=== PATIENT | male | born 2000 | race Caucasian/White ===

== ENCOUNTER 2023-08-16 00:31 | Emergency (ER) | payer SELFPAY ==
[~2023-08-16] VITALS: Ht 175.3 cm; Wt 65.0 kg
[2023-08-16] MEDS ORDERED: CIPROFLOXACIN HCL 250 MG TABLET PO ONE (01:00)
[2023-08-16] MEDS ORDERED: PERTUSS(ACELL),DIPH,TET VAC/PF 0.5 ML SYRINGE IM. ONE (01:00)
[2023-08-16] MEDS ORDERED: CIPR500T10 PO (01:17)
[2023-08-16 01:26] VITALS: BP 132/72; PULSE 75; RESP 16; TEMP 98.3
[2023-08-16] MEDS ORDERED: TRAM-559 PO (17:40)
[2023-08-16] MEDS ORDERED: IBUP-1556 PO (17:48)
== END 2023-08-16 01:30 | disposition home or self-care (01) ==
LOC: EMS 00:34
DX: L03.011 Cellulitis of right finger (principal); F12.90 Cannabis use, unspecified, uncomplicated
CPT/HCPCS: 90471; 90715; 99283

== ENCOUNTER 2023-08-16 15:37 | Emergency (ER) | payer MEDICAID ==
[~2023-08-16] VITALS: Ht 177.8 cm; Wt 55.0 kg
[~2023-08-16 15:37] MED LIST: CIPR500T10 PO
[2023-08-16 15:40] VITALS: TEMP 97.8
[2023-08-16] MEDS ORDERED: KETOROLAC TROMETHAMINE 60 MG/2 ML VIAL IM ONE (17:00)
[2023-08-16] MEDS ORDERED: TRAM-559 PO (17:40)
[2023-08-16] MEDS ORDERED: IBUP-1556 PO (17:48)
[2023-08-16 17:50] VITALS: BP 138/74; PULSE 77; RESP 16
== END 2023-08-16 18:04 | disposition home or self-care (01) ==
LOC: EMS 15:40
DX: L03.011 Cellulitis of right finger (principal); F12.90 Cannabis use, unspecified, uncomplicated
CPT/HCPCS: 99283; 96372; J1885

== ENCOUNTER 2023-08-19 11:41 | Emergency (ER) | payer MEDICAID ==
[~2023-08-19] VITALS: Ht 175.3 cm; Wt 63.6 kg
[~2023-08-19 11:41] MED LIST changes: +IBUP-1556 PO
[2023-08-19 11:50] VITALS: TEMP 98.5
[2023-08-19] MEDS ORDERED: LIDOCAINE 1% 10 ML VIAL SQ ONE (15:00)
[2023-08-19] MEDS ORDERED: SULF-261 PO (16:08)
[2023-08-19] MEDS ORDERED: CEPH-558 PO (16:08)
[2023-08-19] MEDS ORDERED: SULFAMETHOX/TRIMETH DS 800-160 MG/TABLET PO ONE (16:15)
[2023-08-19] MEDS ORDERED: CeFAZolin SODIUM 1 GM VIAL IM ONE (16:15)
[2023-08-19 17:39] VITALS: BP 131/73; PULSE 79; RESP 16
== END 2023-08-19 17:58 | disposition home or self-care (01) ==
LOC: EMS 11:41
DX: L02.511 Cutaneous abscess of right hand (principal); F12.90 Cannabis use, unspecified, uncomplicated
CPT/HCPCS: 99284; 26010; 73130; 96372; J0690; J3490